=== PATIENT | female | born 1945 | race Caucasian/White ===

== ENCOUNTER 2017-01-12 02:52 | Emergency (ER) | payer MEDICARE ==
[~2017-01-12 02:52] MED LIST: ACTOS45 MG; AMITRIPTYLINE H50 M1 PO; BENTYL10 MG PO; CYMBALTA60 MG PO; GLIPIZIDE5 MG PO; GLUCOPHAGE1000 M1 PO; JANUMET 50-501 UDTAB PO; KEFLEX500 M4 PO; LANTUS SOL100 UNIT/1 SQ; LEXAPRO10 MG PO; LISINOPRIL40 MG PO; MACROBID 100 M100 M1 PO; MINOCIN100 MG; NOVOLOG100 UNITS/ SC; PERCOCET 5/3251 TAB PO; VALIUM2 MG PO; ZOFRAN4 M2 PO
[2017-01-12] MEDS ORDERED: AMITRIPTYLINE H75 M1 PO (03:17)
[2017-01-12] MEDS ORDERED: GLUCOTROL5 M1 PO (03:19)
[2017-01-12 03:50] LABS: BASO % 0.6 % (0-2); BASO ABSOLUTE COUNT 0.1 tho/cmm (0.0-0.2); EOS % 3.1 % (0-7); EOSINOPHIL ABSOLUTE COUNT 0.3 tho/cmm (0.0-0.7); HCT-HEMATOCRIT 39.1 % (34.0-49.0); HGB-HEMOGLOBIN 12.4 gm/dl (12.0-15.5); IMMATURE GRANULOCYTES ABSOLUTE 0.03 tho/cmm (0-0.03); IMMATURE GRANULOCYTES PERCENT 0.3 % (0-0.3); LYMPH % 28.2 % (20-45); LYMPH ABSOLUTE COUNT 2.9 tho/cmm (0.8-4.5); MCH (MEAN CORPUSCULAR HGB) 28.4 pg (28.0-32.0); MCHC MEAN CORPUSCULAR HGB CONC 31.7 % (32.0-36.0); MCV (MEAN CELL VOLUME) 89.7 fl (82.0-96.0); MEAN PLATELET VOLUME 9.6 cmc (9.4-12.4); MONO % 4.1 % (0-12); MONOCYTE ABSOLUTE COUNT 0.4 tho/cmm (0.0-1.2); NEUTROPHIL ABSOLUTE COUNT 6.6 tho/cmm (1.6-8.0); NEUTROPHIL-AUTOMATED 6.6 tho/cmm (1.6-8.0); NEUTROPHILS % 63.7 % (40-80); PLATELET COUNT 258 tho/cmm (150-450); RED BLOOD COUNT 4.36 mil/cmm (4.00-5.20); RED CELL DISTRIBUTION WIDTH 14.7 % (12.4-16.4); WHITE BLOOD COUNT 10.3 tho/cmm (4.0-10.0)
[2017-01-12 03:59] LABS: URINE BILIRUBIN NEGATIVE (NEG); URINE GLUCOSE (UA) NEGATIVE (NEG); URINE KETONE NEGATIVE (NEG); URINE LEUKOCYTE ESTERASE POSITIVE (NEG); URINE NITRITE NEGATIVE (NEG); URINE PROTEIN SMALL (NEG)
[2017-01-12 04:10] LABS: URINE BLOOD NEGATIVE (NEG)
[2017-01-12 04:12] LABS: URINE APPEARANCE HAZY; URINE COLOR YELLOW
[2017-01-12 04:13] LABS: URINE BACTERIA 2+; URINE RBC 0 /[HPF] (0-5); URINE WBC 20-30 /[HPF] (0-5)
[2017-01-12 04:34] LABS: ALB/GLOB RATIO 0.8 (0.8-2.0); ALBUMIN 3.3 g/dl (3.5-5.0); ALKALINE PHOSPHATASE 103 U/L (33-138); ALT/SGPT 49 U/L (12-78); BILIRUBIN,TOTAL 0.2 mg/dl (0-1.5); BLOOD UREA NITROGEN 21 mg/dl (6-24); C-REACTIVE PROTEIN 1.5 mg/dl (0-0.9); CALCIUM 8.7 mg/dl (8.5-10.5); CARBON DIOXIDE-VENOUS 21 mmol/L (22-32); CHLORIDE 110 mmol/l (96-110); CREATININE 0.68 mg/dl (0.50-1.10); GLUCOSE 200 mg/dL (70-110); LIPASE 114 U/L (73-393); SODIUM 140 mmol/L (135-145); eGFR VALUE FOR BLACK >90 mL/Min
[2017-01-12 04:37] LABS: ANION GAP 13 mmol/L (0-20); AST/SGOT 45 U/L (10-40); POTASSIUM 4.3 mmol/L (3.7-5.1)
[2017-01-12] MEDS ORDERED: MACROBID 100 M100 M1 PO (07:18)
== END 2017-01-12 07:46 ==
LOC: EDMED 02:52
PROVIDERS: Emergency Medicine
DX: N39.0 Urinary tract infection, site not specified (principal); E11.9 Type 2 diabetes mellitus without complications; I10 Essential (primary) hypertension; F41.9 Anxiety disorder, unspecified; F32.9 Major depressive disorder, single episode, unspecified; Z90.710 Acquired absence of both cervix and uterus; Z90.49 Acquired absence of other specified parts of digestive tract; Z79.4 Long term (current) use of insulin; Z79.899 Other long term (current) drug therapy
CPT/HCPCS: J2060; J2270; J2405; J7030; Q9967